=== PATIENT | male | born 1975 | race Caucasian/White ===

== ENCOUNTER 2017-12-19 12:11 | Inpatient (IN) | payer MEDICARE, MEDICAID ==
[~2017-12-19] VITALS: Ht 180.3 cm; Wt 137.6 kg
[2017-12-19 13:44] LABS: Basophils # (auto) 0 uL; Basophils % (auto) 0.3 % (0.0-2.0); Eosinophils # (auto) 0.1 uL; Eosinophils % (auto) 1.1 % (0.0-7.0); Hematocrit 42.9 % (41.0-53.0); Hemoglobin 13.8 g/dL (13.5-17.5); Lymphocytes # (auto) 1.8 uL; Lymphocytes % (auto) 17.1 % (10.0-50.0); Mean Corpuscular Hemoglobin 22.8 pg (28.0-32.0); Mean Corpuscular Hgb Conc. 32.2 g/dL (32.0-36.0); Mean Corpuscular Volume 70.8 fL (80.0-100.0); Monocytes # (auto) 0.9 uL; Neutrophils # (auto) 7.5 uL; Neutrophils % (auto) 72.5 % (37.0-80.0); Nucleated Red Blood Cells % 0.1 %; Platelet Count (auto) 226 10^3/uL (140-450); Red Blood Cells 6.06 10^6/uL (4.5-5.90); Red Cell Distribution Width 15.8 % (11.8-14.3); White Blood Cell 10.3 10^3/uL (4.4-10.8)
[2017-12-19 13:53] LABS: Urine Bacteria NONE SEEN /hpf (None Seen); Urine Blood Negative /uL (Negative); Urine Mucus FEW (None Seen); Urine Specific Gravity 1.017 (1.001-1.035); Urine WBC <1 /hpf (0 - 3)
[2017-12-19 14:07] LABS: Albumin 3.5 g/dL (3.4-5.0); BUN/Creatinine Ratio 9.8; Calcium 8.4 mg/dL (8.5-10.1); Potassium 3.7 mmol/L (3.5-5.1)
[2017-12-19 14:10] LABS: Bilirubin, Total 0.4 mg/dL (0.2-1.0); Total Protein 7.9 g/dL (6.4-8.2)
[2017-12-19] MEDS ORDERED: SODIUM CHLORIDE 0.9% 500 ML IVB ONE (15:23)
[2017-12-19] MEDS ORDERED: PANTOPRAZOLE 40 MG/10 ML VIAL IV STA (15:23)
[2017-12-19] MEDS ORDERED: LORazepam 2MG/ML-1ML VIAL IV PRN (15:45)
[2017-12-19] MEDS ORDERED: cefTRIAXone 1GM/10ml IVPUSH 10 ML IV ONE (15:45)
[2017-12-19] MEDS ORDERED: PANTOPRAZOLE 40 MG/10 ML VIAL IV ONE (15:45)
[2017-12-19] MEDS ORDERED: NITROGLYCERIN 0.4 MG SL TAB SL PRN (15:45)
[2017-12-19] MEDS ORDERED: MORPHINE SULFATE 4 MG/ML SYR/VIAL IV PRN ×2 (15:45)
[2017-12-19 15:55] LABS: Amylase 43 U/L (25-115); Lipase 121 U/L (73-393)
[2017-12-19 16:18] LABS: INR 0.91 (0.9-1.15); Partial Thromboplastin Time 27.2 sec (23.78-33.04); Prothrombin Time 9.8 sec (9.27-12.13)
[2017-12-19] MEDS ORDERED: metroNIDAZOLE 500MG/100ML 100 ML IV ONE (16:30)
[2017-12-19] MEDS ORDERED: HAL1T (17:15)
[2017-12-19] MEDS ORDERED: CARB200T39 (17:15)
[2017-12-19] MEDS ORDERED: RISP3TAB44 (17:15)
[2017-12-19] MEDS ORDERED: ESCI10TA53 (17:15)
[2017-12-19] MEDS: SODIUM CHLORIDE 0.9% 1,000 ML IV SCH (17:16)
[2017-12-19] MEDS: ONDANSETRON HCL 4 MG/2 ML VIAL IV PRN (20:54)
[2017-12-19] MEDS: MORPHINE SULFATE 4 MG/ML SYR/VIAL IV PRN (20:54)
[2017-12-19 23:10] VITALS: BP 116/66
[2017-12-20] MEDS: SODIUM CHLORIDE 0.9% 1,000 ML IV SCH ×3 (00:10→18:21)
[2017-12-20] MEDS: metroNIDAZOLE 500MG/100ML 100 ML IV SCH ×4 (00:46→18:22)
[2017-12-20 02:58] VITALS: BP 116/66
[2017-12-20 05:00] VITALS: BP 108/72
[2017-12-20 06:17] LABS: Basophils # (auto) 0 uL; Eosinophils # (auto) 0.1 uL; Hemoglobin 12.7 g/dL (13.5-17.5); Monocytes # (auto) 0.9 uL; Neutrophils # (auto) 5.2 uL; Nucleated Red Blood Cells % 0.1 %
[2017-12-20 06:20] LABS: Basophils % (auto) 0.3 % (0.0-2.0); Eosinophils % (auto) 1.8 % (0.0-7.0); Hematocrit 38.5 % (41.0-53.0); Lymphocytes # (auto) 1.7 uL; Mean Corpuscular Hemoglobin 23.3 pg (28.0-32.0); Mean Corpuscular Volume 70.8 fL (80.0-100.0); Monocytes % (auto) 11.8 % (0.0-12.0); Neutrophils % (auto) 65.1 % (37.0-80.0); Platelet Count (auto) 203 10^3/uL (140-450); Red Blood Cells 5.44 10^6/uL (4.5-5.90); Red Cell Distribution Width 15.6 % (11.8-14.3); White Blood Cell 7.9 10^3/uL (4.4-10.8)
[2017-12-20 06:48] LABS: Albumin 2.9 g/dL (3.4-5.0); BUN/Creatinine Ratio 9.1; Calcium 7.6 mg/dL (8.5-10.1); Potassium 4.1 mmol/L (3.5-5.1)
[2017-12-20 06:50] LABS: Bilirubin, Total 0.6 mg/dL (0.2-1.0); Total Protein 6.9 g/dL (6.4-8.2)
[2017-12-20] MEDS: cefTRIAXone 1GM/10ml IVPUSH 10 ML IV SCH (08:13)
[2017-12-20] MEDS: MORPHINE SULFATE 4 MG/ML SYR/VIAL IV PRN ×2 (08:14→20:08)
[2017-12-20] MEDS: ONDANSETRON HCL 4 MG/2 ML VIAL IV PRN (08:33)
[2017-12-20 09:00] VITALS: BP 108/69
[2017-12-20] MEDS: PANTOPRAZOLE 40 MG/10 ML VIAL IV SCH (10:41)
[2017-12-20 12:47] VITALS: BP 107/67
[2017-12-20] MEDS ORDERED: ALBUTEROL SULF 2.5 MG/0.5ML(0.5%) NEB SOLN NEB PRN (13:00)
[2017-12-20 17:00] VITALS: BP 105/56
[2017-12-20] MEDS: carBAMazepine 200 MG TAB PO SCH ×2 (18:22→21:11)
[2017-12-20 22:00] VITALS: BP 118/75
[2017-12-20] MEDS ORDERED: KETOROLAC TROMETH 30 MG/ML 1ML VIAL IV ONE (22:00)
[2017-12-21] MEDS: metroNIDAZOLE 500MG/100ML 100 ML IV SCH ×5 (00:02→23:54)
[2017-12-21] MEDS: SODIUM CHLORIDE 0.9% 1,000 ML IV SCH ×4 (00:02→23:50)
[2017-12-21 05:00] VITALS: BP 99/66
[2017-12-21] MEDS: carBAMazepine 200 MG TAB PO SCH ×4 (05:46→21:33)
[2017-12-21 08:00] VITALS: BP 101/72
[2017-12-21 08:12] VITALS: BP 109/67
[2017-12-21] MEDS: HALOPERIDOL 1 MG TAB PO SCH (08:49)
[2017-12-21] MEDS: risperiDONE 1 MG TAB PO SCH (08:50)
[2017-12-21] MEDS: CITALOPRAM HYDROBR 20 MG TAB PO SCH (09:28)
[2017-12-21] MEDS: PANTOPRAZOLE 40 MG/10 ML VIAL IV SCH (09:45)
[2017-12-21] MEDS: cefTRIAXone 1GM/10ml IVPUSH 10 ML IV SCH (09:45)
[2017-12-21] MEDS ORDERED: ESCITALOPRAM 10 MG PO SCH (10:00)
[2017-12-21] MEDS ORDERED: GLYCOPYRROLATE 0.2 MG/ML 1ML VIAL IV ONE (10:21)
[2017-12-21] MEDS ORDERED: fentaNYL CITRATE 100 MCG/2 ML VL ONE (10:21)
[2017-12-21] MEDS ORDERED: NEOSTIGMINE 1 MG/ML INJ (10mg/10ML VIAL) IV ONE (10:21)
[2017-12-21] MEDS ORDERED: SUCCINYLCHOLINE CHLORIDE 20 MG/ML 10ML VIAL IV ONE (10:25)
[2017-12-21] MEDS ORDERED: METOCLOPRAMIDE HCL 5MG/ml INJ 2ml VIAL ONE (10:32)
[2017-12-21] MEDS ORDERED: DEXAMETHASONE SOD PHOS 10MG/1ML VIAL INJ ONE (10:32)
[2017-12-21] MEDS ORDERED: PROPOFOL 10 MG/ML 20 ML IV ONE (10:36)
[2017-12-21] MEDS ORDERED: POVIDONE IODINE 10 % TOPICAL OINT 30GM TOP ONE (10:59)
[2017-12-21] MEDS ORDERED: MIDAZOLAM HCL 1MG/1ML-2 ML VIAL IV PRN (11:00)
[2017-12-21] MEDS ORDERED: ONDANSETRON HCL 4 MG/2 ML VIAL IV ONE (11:00)
[2017-12-21] MEDS ORDERED: KETOROLAC TROMETH 30 MG/ML 1ML VIAL IV ONE (11:00)
[2017-12-21] MEDS ORDERED: MORPHINE SULFATE 4 MG/ML SYR/VIAL IV PRN (11:00)
[2017-12-21] MEDS ORDERED: fentaNYL CITRATE 100 MCG/2 ML VL IV ONE (11:00)
[2017-12-21] MEDS ORDERED: ePHEDrine SULFATE 50 MG/ML AMP IV PRN (11:00)
[2017-12-21] MEDS ORDERED: LABETALOL HCL 5 MG/ML 4ML SYRINGE IV PRN (11:00)
[2017-12-21] MEDS: ONDANSETRON HCL 4 MG/2 ML VIAL IV PRN (11:18)
[2017-12-21] MEDS ORDERED: MORPHINE SULFATE 4 MG/ML SYR/VIAL IV ONE (12:00)
[2017-12-21 12:19] VITALS: BP 103/73
[2017-12-21 16:54] VITALS: BP 111/61
[2017-12-21] MEDS: MORPHINE SULFATE 4 MG/ML SYR/VIAL IV PRN (20:45)
[2017-12-21 22:00] VITALS: BP 96/52
[2017-12-22 05:00] VITALS: BP 111/57
[2017-12-22] MEDS: metroNIDAZOLE 500MG/100ML 100 ML IV SCH (06:10)
[2017-12-22] MEDS: carBAMazepine 200 MG TAB PO SCH (06:10)
[2017-12-22 07:40] LABS: Basophils # (auto) 0 uL; Eosinophils # (auto) 0.1 uL; Hemoglobin 12.6 g/dL (13.5-17.5)
[2017-12-22 07:43] LABS: Basophils % (auto) 0.2 % (0.0-2.0); Eosinophils % (auto) 1.2 % (0.0-7.0); Hematocrit 38.5 % (41.0-53.0); Lymphocytes # (auto) 2.4 uL; Lymphocytes % (auto) 27.5 % (10.0-50.0); Mean Corpuscular Hgb Conc. 32.7 g/dL (32.0-36.0); Mean Corpuscular Volume 70.3 fL (80.0-100.0); Monocytes # (auto) 0.7 uL; Monocytes % (auto) 8.5 % (0.0-12.0); Neutrophils # (auto) 5.4 uL; Neutrophils % (auto) 62.6 % (37.0-80.0); Nucleated Red Blood Cells % 0.1 %; Platelet Count (auto) 234 10^3/uL (140-450); Red Blood Cells 5.48 10^6/uL (4.5-5.90); Red Cell Distribution Width 15.6 % (11.8-14.3); White Blood Cell 8.7 10^3/uL (4.4-10.8)
[2017-12-22 07:51] LABS: BUN/Creatinine Ratio 8.8; Bilirubin, Total 0.3 mg/dL (0.2-1.0); Calcium 8.2 mg/dL (8.5-10.1); Potassium 3.6 mmol/L (3.5-5.1); Total Protein 7.1 g/dL (6.4-8.2)
[2017-12-22 08:00] VITALS: BP 102/57
[2017-12-22 08:30] VITALS: BP 102/57
[2017-12-22] MEDS: cefTRIAXone 1GM/10ml IVPUSH 10 ML IV SCH (09:39)
[2017-12-22] MEDS: CITALOPRAM HYDROBR 20 MG TAB PO SCH (09:40)
[2017-12-22] MEDS: PANTOPRAZOLE 40 MG/10 ML VIAL IV SCH (09:40)
[2017-12-22] MEDS: risperiDONE 1 MG TAB PO SCH (09:40)
[2017-12-22] MEDS: HALOPERIDOL 1 MG TAB PO SCH (09:41)
[2017-12-22] MEDS: SODIUM CHLORIDE 0.9% 1,000 ML IV SCH (09:43)
== END 2017-12-22 11:40 | disposition home or self-care (01) | DRG 418 ==
LOC: ER 12:12 → TELE 12:13 → TELE-WESTW 22:45
PROVIDERS: ADMIT Internal Medicine; ATTEND Family Medicine
PROC: 5A09357 Assistance with Respiratory Ventilation, Less than 24 Consecutive Hours, Continuous Positive Airway Pressure (ICD-10-PCS; 2017-12-19)
PROC: 5A09357 Assistance with Respiratory Ventilation, Less than 24 Consecutive Hours, Continuous Positive Airway Pressure (ICD-10-PCS; 2017-12-20)
PROC: 5A09357 Assistance with Respiratory Ventilation, Less than 24 Consecutive Hours, Continuous Positive Airway Pressure (ICD-10-PCS; 2017-12-21)
PROC: 0FT44ZZ Resection of Gallbladder, Percutaneous Endoscopic Approach (ICD-10-PCS; principal; 2017-12-21 10:05)
DX: K80.12 Calculus of gallbladder with acute and chronic cholecystitis without obstruction (principal); Z68.41 Body mass index [BMI] 40.0-44.9, adult; E66.01 Morbid (severe) obesity due to excess calories; F20.9 Schizophrenia, unspecified; G47.33 Obstructive sleep apnea (adult) (pediatric); F31.9 Bipolar disorder, unspecified; G47.30 Sleep apnea, unspecified; J45.909 Unspecified asthma, uncomplicated; Z80.3 Family history of malignant neoplasm of breast; Z83.3 Family history of diabetes mellitus; Z82.49 Family history of ischemic heart disease and other diseases of the circulatory system; Z87.01 Personal history of pneumonia (recurrent); Z82.0 Family history of epilepsy and other diseases of the nervous system
CPT/HCPCS: 36415; 71046; 76705; 80053; 81001; 82150; 83690; 84484; 85025; 85610; 85730; 86850; 86900; 86901; 94660; 96365; 96375; A6257; C9113; J0330; J0696; J1100; J1885; J2405; J2704; J3490

== ENCOUNTER → 2018-04-01 | Outpatient (CLI) | payer MEDICARE, MEDICAID ==
[~2018-04-01] MED LIST: CARB200T39; ESCI10TA53; HAL1T; RISP3TAB44
[2018-04-01 11:05] LABS: Basophils # (auto) 0 uL; Eosinophils # (auto) 0.1 uL; Eosinophils % (auto) 1.9 % (0.0-7.0); Mean Corpuscular Hgb Conc. 32.5 g/dL (32.0-36.0); Monocytes # (auto) 0.5 uL
[2018-04-01 11:08] LABS: Basophils % (auto) 0.5 % (0.0-2.0); Hematocrit 42.2 % (41.0-53.0); Hemoglobin 13.7 g/dL (13.5-17.5); Lymphocytes # (auto) 2.9 uL; Lymphocytes % (auto) 35.9 % (10.0-50.0); Mean Corpuscular Hemoglobin 22.5 pg (28.0-32.0); Mean Corpuscular Volume 69.4 fL (80.0-100.0); Monocytes % (auto) 6.4 % (0.0-12.0); Neutrophils # (auto) 4.4 uL; Neutrophils % (auto) 55.3 % (37.0-80.0); Platelet Count (auto) 237 10^3/uL (140-450); Red Blood Cells 6.08 10^6/uL (4.5-5.90); White Blood Cell 7.9 10^3/uL (4.4-10.8)
== END | disposition home or self-care (01) ==
LOC: LAB 09:55
PROVIDERS: ATTEND Psychiatry & Neurology Psychiatry
DX: F25.9 Schizoaffective disorder, unspecified (principal); F60.9 Personality disorder, unspecified
CPT/HCPCS: 36415; 80156; 85025

== ENCOUNTER 2018-12-11 20:11 | Emergency (ER) | payer MEDICARE, MEDICAID ==
[~2018-12-11] VITALS: Ht 180.3 cm; Wt 147.6 kg
[2018-12-11 21:19] VITALS: BP 131/70
[2018-12-11] MEDS ORDERED: TETANUS-DIPTH-ACEL PERTUSSIS 0.5ML SYRG IM ONE (22:00)
== END 2018-12-11 22:40 | disposition home or self-care (01) ==
LOC: ER 20:16
DX: S91.209A Unspecified open wound of unspecified toe(s) with damage to nail, initial encounter (principal); J45.909 Unspecified asthma, uncomplicated; Z88.6 Allergy status to analgesic agent; Z79.899 Other long term (current) drug therapy; Z91.010 Allergy to peanuts; W22.8XXA Striking against or struck by other objects, initial encounter; Y93.89 Activity, other specified; Y92.89 Other specified places as the place of occurrence of the external cause; Y99.8 Other external cause status
CPT/HCPCS: 90471; 90715

== ENCOUNTER → 2021-05-06 | Outpatient (CLI) | payer MEDICAID, MEDICARE ==
[~2021-05-06] MED LIST changes: +ESCI-28; -ESCI10TA53
[2021-05-06 11:47] LABS: Basophils # (auto) 0 10 ^3/uL (0-0.2); Basophils % (auto) 0.4 % (0.0-2.0); Eosinophils # (auto) 0.1 10 ^3/uL (0-0.8); Monocytes # (auto) 0.6 10 ^3/uL (0-1.3)
[2021-05-06 11:48] LABS: Eosinophils % (auto) 1.1 % (0.0-7.0); Hematocrit 40.5 % (41.0-53.0); Hemoglobin 12.9 g/dL (13.5-17.5); Mean Corpuscular Hemoglobin 22.6 pg (28.0-32.0); Mean Corpuscular Volume 70.8 fL (80.0-100.0); Monocytes % (auto) 6.9 % (0.0-12.0); Neutrophils # (auto) 4.9 10 ^3/uL (1.6-8.6); Neutrophils % (auto) 56.6 % (37.0-80.0); Nucleated Red Blood Cells % 0.2 %; Red Blood Cells 5.72 10^6/uL (4.5-5.90); Red Cell Distribution Width 17.5 % (11.8-14.3); White Blood Cell 8.6 10^3/uL (4.4-10.8)
== END | disposition home or self-care (01) ==
LOC: LAB 09:18
PROVIDERS: ATTEND Psychiatry & Neurology Psychiatry
DX: Z00.00 Encounter for general adult medical examination without abnormal findings (principal)
CPT/HCPCS: 36415; 85025

== ENCOUNTER 2021-12-29 18:24 | Emergency (ER) | payer OTHER, MEDICAID ==
[~2021-12-29] VITALS: Ht 185.4 cm; Wt 59.0 kg
[2021-12-29] MEDS ORDERED: KETOROLAC TROMETH 60MG/2ML VIAL IM ONE (20:30)
[2021-12-29 20:59] VITALS: BP 140/83
== END 2021-12-29 21:04 | disposition home or self-care (01) ==
LOC: ER 18:24
DX: M54.50 Low back pain, unspecified (principal); J45.909 Unspecified asthma, uncomplicated; Z79.899 Other long term (current) drug therapy; Z88.5 Allergy status to narcotic agent; Z88.8 Allergy status to other drugs, medicaments and biological substances; Z91.010 Allergy to peanuts
CPT/HCPCS: 96372; 99283; J1885